=== PATIENT | female | born 1985 | race Caucasian/White ===

== ENCOUNTER 2023-05-27 15:16 | Outpatient (REF) | payer MEDICAID, SELFPAY ==
--- OUTSIDE RECORDS SUMMARY | 2023-05-27 15:19 | XMS_ITS | Patient Health Record ---
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 Name Role Phone Rox Kern Primary Care Provider OG ARORA Unavailable Unavail able Zuleika Pawan Unavailable Marleni Moscoso Unavailable [phone] ALLERGIES Allergen (clinical drug ingredient) Drug/Non Drug Allergy documented on EMR Reaction Allergy Type Onset Date Status escitalopram Lexapro Effective treatment, intolerable sexual side effects Drug Allergy Active Sudafed 12 Hour anxious Drug Allergy A ctive prednisone Prednisone Unknown Drug Allergy Activ e sertraline Sertraline Unknown Drug Allergy Activ e RESULTS Component Value Reference Range Notes CBC WITH DIFF Reviewed date:06/23/2022 04:56:03 PM Interpretation: Performing Lab:NL1, [facility], [address] [place] [address], [phone] Sourav Goel M.D. Notes/Report: Received Date: WHITE BLOOD CELL COUNT 5.8 3.8-10.8 Thousand/ uL RED BLOOD CELL COUNT 4.16 3.80-5.10 Million/uL HEMOGLOBIN 13.1 11.7-15.5 g/dL HEMATOCRIT 37.1 35.0-45.0 % MCV 89.2 80.0-100.0 fL MCH 31.5 27.0-33.0 pg MCHC 35.3 32.0-36.0 g/dL RDW 12.2 11.0-15.0 % PLATELET COUNT 296 140-400 Thousand/uL MPV 9.8 7.5-12.5 fL ABSOLUTE NEUTROPHILS 2558 [phone] cells/uL ABSOLUTE LYMPHOCYTES 0959 101-0684 cells/uL ABSOLUTE MONOCYTES 249 200-950 cells/uL ABSOLUTE EOSINOPHILS 1067 15-500 cells/uL ABSOLUTE BASOPHILS 58 0-200 cells/uL NEUTROPHILS 44.1 LYMPHOCYTES 32.2 MONOCYTES 4.3 EOSINOPHILS 18.4 BASOPHILS 1.0 IRON TOTAL IRON BINDING [place] AND FERRITIN PANEL Reviewed date:06/23/2022 04:56:03 PM Interpretation: Performing Lab:NL1, [facility], [address] [place] [address], [phone] Sourav Goel M.D. Notes/Report: Received Date: IRON, TOTAL 74 40-190 mcg/dL IRON BINDING CAPACITY 312 250-450 mcg/dL (bean c) % SATURATION 24 16-45 % (calc) FERRITIN 16 16-154 ng/mL REASON FOR REFERRAL Reason FAXED TO [facility] 2.17.2 023 [place] Please evaluate and treat Please contact our office within [address] [facility] of scheduled appointment Diagnosis 1 Other eosinophilia ( D72.19) Diagnosis 2 Chronic sinusitis (J 32.9) Diagnosis 3 Allergic rhinitis wi th postnasal drip (J45.909) Referral Organization [facility] [place] Referring Provider First Name Rox Referring Provider Last Name Erlin Referring Provider Speciality Nurse Silva ruano Referred Provider Yovani Michael Referred Provider Specialty Otolaryngolo gy General Notes Renetta Hassan 06/20 11:02:36 AM >FAXED TO [facility]. Referral Priority Routine Reason FAXED TO [facility] 2.17.20 23 [place] Please evaluate and treat Please contact our office within [address] [facility] of scheduled appointment Diagnosis 1 Multiple environment al allergies (Z91.09) Diagnosis 2 Allergic rhinitis wi th postnasal drip (J45.909) Diagnosis 3 Chronic sinusitis (J 32.9) Diagnosis 4 Other eosinophilia ( D72.19) Referral Organization [facility] Gonzalo Damon Referring Provider First Name Rox Referring Provider Last Name Erlin Referring Provider Speciality Nurse Silva ruano Referred Provider Landon Tyler Referred Provider Specialty Allergy/Immu nology General Notes Renetta Hassan 06/20 11:03:11 AM >FAXED TO [facility]. Referral Priority Routine MEDICATIONS Medication SIG (Take, Route, Frequency, Duration) Notes Start Date End Date Status Albuterol Sulfate HFA 108 (90 Base) MCG/ACT 1 puff as needed Inhalation every 4 hrs 10/04/2021 Active Advair Diskus 100-50 MCG/ACT 1 puff Inhalation Twice a day as needed with illness for 30 days 12/03/2022 Active buPROPion HCl ER (SR) 200 MG 1 tablet in the morning Orally Once a day for 30 days stopping wellbutrin XL 05/07/2023 Active Wellbutrin XL 150 MG 1 tablet in the morning Orally Once a day for 30 days 03/23/2023 Active Montelukast Sodium 10 MG 1 tablet Orally Once a day for 30 days 06/19/2022 Active Fluticasone Propionate 50 MCG/ACT 1 spray in each nostril Nasally Once a day Active IMMUNIZATIONS Vaccine Route Administration Date Status Comme nts COVID-19 Pfizer Unknown 08/21/2020 Administered COVID-19 Pfizer Unknown 09/11/2020 Administered COVID-19 Pfizer Unknown 03/21/[address] [facility] [id number] Unknown [address] [facility] [id number] Unknown [address] [facility] [id number] Unknown [address] [facility] [id number] Unknown 12/21/[address] [facility] [id number] Unknown 12/18/1987 [address] B Peds [facility] [id number] Unknown 12/26/1998 Administ[address] Hepatitis B Peds [facility] [id number] Unknown 01/29/1999 Administered Hepatitis B Peds [facility] [id number] Unknown 05/14/[address] [facility] [id number] Unknown 12/13/1986 Administered INFLUENZA 18 YRS TO 64 YRS OLD-STATE SUPPLIED IM Intramuscular 02/14/[address] [facility] Purchased Vaccine 31957 Unknown 06/23/[address] [facility] Purchased Vaccine [id number] Unknown 02/27/[address] [facility] Purchased Vaccine 48650 Unknown 04/18/[address] [facility] Purchased Vaccine [id number] Unknown 02/09/[address] [facility] Purchased Vaccine [id number] Unknown 07/03/[address] [facility] Purchased Vaccine [id number] Unknown 06/12/[address] [facility] Purchased Vaccine 60479 Unknown 04/21/[address] [facility] Purchased Vaccine [id number] Unknown 04/07/[address] [facility] Purchased Vaccine [id number] Unknown 03/13/2020 Administered MMR [facility] [id number] Unknown 06/28/1984 Administered MMR [facility] [id number] Unknown 09/04/1994 Administered OPV Unknown 1983 Administered OPV Unknown 1983 Administered OPV Unknown 1983 Administered OPV Unknown 12/21/1984 Administered OPV Unknown 12/18/1987 Administered Td Unknown 10/30/1992 Administered Td Unknown 12/26/1998 Administered Td Unknown 06/23/2005 Administered TDAP Unknown 11/29/2012 Administered TDAP Unknown 11/02/2018 Administered Varicella [facility] 77794 Unknown 10/04/1984 Administered SOCIAL HISTORY Tobacco Use: Social History Observation Description Date Details (start date - stop date) Never Smoker NA - NA Sex Assigned At : Social History Observation Description Sex Assigned At Female SMOKING STATUS: Question Answer Notes Are you a: Nonsmoker PRAPARE Question Answer Notes Date Completed/Updated: 08/26/2021 What is your current housing situation? I have h ousing Are you worried about losing your housing? No What is the highest level of school that you have finished? 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 Check all that apply I do not have problems meeting my needs Has lack of transportation k ept you from medical appointments, meetings, work or from getting things needed for daily living? No How often do you see or talk to people that you care about and feel close to? (For example: talking to friends on the phone, visiting friends or family, going to hindu or club meetings) More than 5 times a week How stressed are you? Stress is when someone feels tense, nervous, anxious, or can't sleep at night because their mind is troubled A little bit In the past year have you sp ent more than 2 nights in a row in a group home, jail, [facility] center, or juvenile correctional facility? No Are you a refugee? No What country are you from? [place] Do you feel physically and e motionally safe where you currently live? Yes In the past year, have you b een afraid of your partner or ex-partner? No PRAPARE Score: 2 PROBLEMS Problem Type ICD Code Onset Dates Problem Status W/U Status Risk SNOMED Code Notes Problem Mild persistent asthma, uncomplicated (J45.30) Active confirmed 173910552 Problem Allergic rhinitis with postnasal drip (J45.909) Active confirmed Asthma withou t status asthmaticus (62140526) Problem EFRAIN (generalized anxiety disorder) (F41.1) Active confirmed 46610865 Problem Chronic sinusitis (J32.9) Active confirmed Chronic sinusitis (98238797) Problem ADHD (attention deficit hyperactivity disorder), combined type (F90.2) Active confirmed 23215289 Problem Menorrhagia with regular cycle (N92.0) Active confirmed 425583676 Problem Mild episode of recurrent major depressive disorder (F33.0) Active confirmed 916968286 Problem Multiple environmental allergies (Z91.09) Active confirmed Environmental allergy (finding) (713404733) Problem 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) Active confirmed Eosinophil coun t above reference range (finding) (112577970) VITAL SIGNS Heart Rate 81 BPM 12/03/2022 Temperature 97.8 degrees Fahrenheit 12/03/2022 Oximetry 98 % 12/03/2022 Blood pressure diastolic 70 mmHg 12/03/2022 Height 63.31 in 12/03/2022 Blood pressure systolic 120 mmHg 12/03/2022 Weight 137 lbs 12/03/2022 BMI 24.03 kg/m2 12/03/2022 Encounters Encounter Location Date Provider Diagnosis [address] [id number] 06/26/2022 Rox Kern Mild persistent asthma, uncomplicated J45.[address] [id number] 08/20/2022 Marleni Moscoso [address] [id number] 09/01/2022 Rox Kern [address] [id number] 09/11/2022 Rox Kern [address] [id number] 10/14/2022 Marleni Moscoso [address] [id number] 11/25/2022 Marleni Moscoso [address], [place] [id number] 12/03/2022 Rox Kern [address] [id number] 04/09/2023 Marleni Moscoso [address] [id number] 05/14/2023 Yepezant Moscoso [address], [place] [id number] 06/19/2022 Rox Kern Encounter to establish care with new doctor Z76.89 ; Fatigue R53.83 ; Chronic sinusitis J32.9 ; Reactive airway disease, mild persistent, uncomplicated J45.30 and Menorrhagia with regular cycle N92.[address] [id number] 07/16/2022 Marleni Moscoso Mild episode of recurrent major depressive disorder F33.0 ; EFRAIN (generalized anxiety disorder) F41.1 and ADHD (attention deficit hyperactivity disorder), combined type F90.[address] [id number] 08/19/2022 Yepez Brodrichard Mild episode of recurrent major depressive disorder F33.0 ; EFRAIN (generalized anxiety disorder) F41.1 and ADHD (attention deficit hyperactivity disorder), combined type F90.[address] [id number] 10/17/2022 Yepezant Moscoso Mild episode of recurrent major depressive disorder F33.0 ; EFRAIN (generalized anxiety disorder) F41.1 and ADHD (attention deficit hyperactivity disorder), combined type F90.[address] [id number] 10/30/2022 Yepez Brodrichard Mild episode of recurrent major depressive disorder F33.0 ; EFRAIN (generalized anxiety disorder) F41.1 and ADHD (attention deficit hyperactivity disorder), combined type F90.[address] [id number] 11/26/2022 Yepezant Moscoso Mild episode of recurrent major depressive disorder F33.0 ; EFRAIN (generalized anxiety disorder) F41.1 and ADHD (attention deficit hyperactivity disorder), combined type F90.[address], [place] [id number] 12/03/2022 Rox Kern Annual physical exam Z00.00 and Dietary counseling Z71.[address] [id number] 12/18/2022 Yepez Brodrichard Mild episode of recurrent major depressive disorder F33.0 ; EFRAIN (generalized anxiety disorder) F41.1 and ADHD (attention deficit hyperactivity disorder), combined type F90.[address] [id number] 01/15/2023 Yepez Brodhiramnssienna Mild episode of recurrent major depressive disorder F33.0 ; EFRAIN (generalized anxiety disorder) F41.1 and ADHD (attention deficit hyperactivity disorder), combined type F90.[address] [id number] 02/03/2023 Yepez Brodhiramnssienna Mild episode of recurrent major depressive disorder F33.0 ; EFRAIN (generalized anxiety disorder) F41.1 and ADHD (attention deficit hyperactivity disorder), combined type F90.[address] [id number] 03/04/2023 Yepez Brodhiramnssienna Mild episode of recurrent major depressive disorder F33.0 ; EFRAIN (generalized anxiety disorder) F41.1 and ADHD (attention deficit hyperactivity disorder), combined type F90.[address] [id number] 04/01/2023 Yepez Brodzinssienna Mild episode of recurrent major depressive disorder F33.0 ; EFRAIN (generalized anxiety disorder) F41.1 and ADHD (attention deficit hyperactivity disorder), combined type F90.2 [facility] [address] [place], [place] [id number] 06/03/2022 Rox Kern [address], [place] [id number] 06/19/2022 Rox Kern [address], [place] [id number] 06/19/2022 Rox CULVER [address] [id number] 07/21/2022 Marleni Moscoso Mild episode of recurrent major depressive disorder F33.[address] [id number] 10/02/2022 Rox Kern [address] [id number] 01/13/2023 Marleni Moscoso Mild episode of recurrent major depressive disorder F33.[address] [id number] 02/24/2023 Marleni Moscoso Mild episode of recurrent major depressive disorder F33.[address] [id number] 03/23/2023 Marleni Moscoso Mild episode of recurrent major depressive disorder F33.[address] [id number] 04/01/2023 Pawan To [address] [id number] 05/07/2023 Marleni Moscoso ASSESSMENTS Encounter Date Diagnosis Assessment Notes Treatment Notes Treatment Clinical Notes 06/19/2022 PRAPARE NEGATIVE (ICD9-CM - PRAN) 06/19/2022 Fatigue (ICD-10 - R53.83) 06/19/2022 Encounter to establish care with new doctor (ICD-10 - Z76.89) 06/26/2022 Mild persistent asthma, uncomplicated (ICD-10 - J45.30) 07/16/2022 EFRAIN (generalized anxiety disorder) (ICD-10 - F41.1) 07/16/2022 Mild episode of recurrent major depressive disorder (ICD-10 - F33.0) 07/21/2022 Mild episode of recurrent major depressive disorder (ICD-10 - F33.0) 08/19/2022 Mild episode of recurrent major depressive disorder (ICD-10 - F33.0) 10/17/2022 Mild episode of recurrent major depressive disorder (ICD-10 - F33.0) 10/30/2022 Mild episode of recurrent major depressive disorder (ICD-10 - F33.0) 11/26/2022 Mild episode of recurrent major depressive disorder (ICD-10 - F33.0) 12/03/2022 Annual physical exam (ICD-10 - Z00.00) 12/03/2022 Dietary counseling (ICD-10 - Z71.3) 12/18/2022 Mild episode of recurrent major depressive disorder (ICD-10 - F33.0) 01/13/2023 Mild episode of recurrent major depressive disorder (ICD-10 - F33.0) 02/03/2023 Mild episode of recurrent major depressive disorder (ICD-10 - F33.0) 02/24/2023 Mild episode of recurrent major depressive disorder (ICD-10 - F33.0) 03/04/2023 Mild episode of recurrent major depressive disorder (ICD-10 - F33.0) 03/23/2023 Mild episode of recurrent major depressive disorder (ICD-10 - F33.0) 01/15/2023 Mild episode of recurrent major depressive disorder (ICD-10 - F33.0) 04/01/2023 Mild episode of recurrent major depressive disorder (ICD-10 - F33.0) 02/03/2023 EFRAIN (generalized anxiety disorder) (ICD-10 - F41.1) 04/01/2023 EFRAIN (generalized anxiety disorder) (ICD-10 - F41.1) 03/04/2023 EFRAIN (generalized anxiety disorder) (ICD-10 - F41.1) 01/15/2023 EFRAIN (generalized anxiety disorder) (ICD-10 - F41.1) 12/18/2022 EFRAIN (generalized anxiety disorder) (ICD-10 - F41.1) 11/26/2022 EFRAIN (generalized anxiety disorder) (ICD-10 - F41.1) 10/30/2022 EFRAIN (generalized anxiety disorder) (ICD-10 - F41.1) 10/17/2022 EFRAIN (generalized anxiety disorder) (ICD-10 - F41.1) 08/19/2022 EFRAIN (generalized anxiety disorder) (ICD-10 - F41.1) 07/16/2022 ADHD (attention deficit hyperactivity disorder), combined type (ICD-10 - F90.2) 06/19/2022 Chronic sinusitis (ICD-10 - J32.9) 08/19/2022 ADHD (attention deficit hyperactivity disorder), combined type (ICD-10 - F90.2) 10/17/2022 ADHD (attention deficit hyperactivity disorder), combined type (ICD-10 - F90.2) 10/30/2022 ADHD (attention deficit hyperactivity disorder), combined type (ICD-10 - F90.2) 11/26/2022 ADHD (attention deficit hyperactivity disorder), combined type (ICD-10 - F90.2) 12/18/2022 ADHD (attention deficit hyperactivity disorder), combined type (ICD-10 - F90.2) 01/15/2023 ADHD (attention deficit hyperactivity disorder), combined type (ICD-10 - F90.2) 03/04/2023 ADHD (attention deficit hyperactivity disorder), combined type (ICD-10 - F90.2) 04/01/2023 ADHD (attention deficit hyperactivity disorder), combined type (ICD-10 - F90.2) 02/03/2023 ADHD (attention deficit hyperactivity disorder), combined type (ICD-10 - F90.2) 06/19/2022 Reactive airway disease, mild persistent, uncomplicated (ICD-10 - J45.30) 06/19/2022 Menorrhagia with regular cycle (ICD-10 - N92.0) 06/19/2022 Other Visit performed and documented by DNP student, Lolis Dalal. I, Ben Arora APRN have personally reviewed and agree with the documentation as above. The assessment and plan were formulated with my direct involvement. 07/16/2022 Other Documentation assistance provided by artur An for Marleni Moscoso [facility] ASSISTANT STORE MANAGER-C INSULATION POWER UNIT TENDER on 07/16/2022. I have read the medical record and scribe entries. I approve the care and treatment provided to this patient as recorded by the scribe. Increase Lamotrigine to 200 mg, monitor for rash and stop if rash occursContinue exercising on regular basisContinue engaging in activities she enjoys like yoga and marathonWould benefit from couples counseling 08/19/2022 Other Documentation assistance provided by artur An [facility] ASSISTANT STORE MANAGER-C INSULATION POWER UNIT TENDER on 08/19/2022. I have read the medical record and scribe entries. I approve the care and treatment provided to this patient as recorded by the scribe Continue Lamotrigine 200 mg, monitor for rash and stop if rash occursContinue exercising on regular basisContinue engaging in activities she enjoys like yoga and marathonContinue engaging with her friends congratulated her on maintaining her sobriety 10/17/2022 Other Documentation assistance provided by artur An [facility] ASSISTANT STORE MANAGER-C INSULATION POWER UNIT TENDER on 10/17/2022. I have read the medical record and scribe entries. I approve the care and treatment provided to this patient as recorded by the scribe Start Vyvanse 20 mg, one capsule in the morning with foodMonitor for suppressed appetite, poor sleep an increase in headaches and irritabiltyContinue Lamotrigine 150 mg, monitor for rash and stop if rash occursContinue engaging in activities she enjoys like golfing, yoga and marathonContinue engaging with her family and friends 10/30/2022 Other Documentation assistance provided by artur An [facility] ASSISTANT STORE MANAGER-C INSULATION POWER UNIT TENDER on 10/30/2022. I have read the medical record and scribe entries. I approve the care and treatment provided to this patient as recorded by the scribe Increase Vyvanse to 30 mg, one capsule in the morning with foodMonitor for suppressed appetite, poor sleep, increase in headaches and increased irritability Will monitor BPContinue Lamotrigine 200 mg, monitor for rash and stop if rash occursContinue engaging in activities she enjoys like golfing, yoga and marathonContinue engaging with her family and friends 11/26/2022 Other Documentation assistance provided by artur An [facility] ASSISTANT STORE MANAGER-C INSULATION POWER UNIT TENDER on 11/26/2022. I have read the medical record and scribe entries. I approve the care and treatment provided to this patient as recorded by the scribe Increase Vyvanse to 40 mg, in the morningMonitor for suppressed appetite and headachesWill monitor BP Continue Lamotrigine 200 mg, monitor for rash and stop if rash occursWill consider decreasing if ice bath therapy works wellContinue daily exercise 12/18/2022 Other Documentation assistance provided by artur Annski [employer] ASSISTANT STORE MANAGER-C INSULATION POWER UNIT TENDER on 12/18/2022. I have read the medical record and scribe entries. I approve the care and treatment provided to this patient as recorded by the scribe Will mail control drug contract Continue Vyvanse 40 mg, in the morning Monitor for suppressed appetite and headaches Decrease Lamotrigine to 100 mg, monitor for rash and stop if rash occurs Will consider d/c'ing if ice bath therapy works well Continue daily exercise Continue engaging with her family and dog 01/15/2023 Other Documentation assistance provided by efra Anibing for Yepez Blanka [employer] ASSISTANT STORE MANAGER-C INSULATION POWER UNIT TENDER on 01/15/2023. I have read the medical record and scribe entries. I approve the care and treatment provided to this patient as recorded by the scribe Continue Vyvanse 40 mg, in the morningMonitor for suppressed appetite and headachesDecrease Lamotrigine to 100 mg, monitor for rash and stop if rash occursEnjoy trip with her familyEncouraged using hot tub to relieve muscle tension 02/03/2023 Other Documentation assistance provided by efra Anibing for Marleni Moscoso [facility] ASSISTANT STORE MANAGER-C INSULATION POWER UNIT TENDER on 02/03/2023. I have read the medical record and scribe entries. I approve the care and treatment provided to this patient as recorded by the scribe. Continue Vyvanse 40 mg, in the morningWill consider increasing in the futureMonitor for suppressed appetite and headachesContinue Lamotrigine to 100 mg, monitor for rash and stop if rash occursEncourage engaging in regular walks Continue in Yoga, discussed the importance of taking time for herself 03/04/2023 Other Documentation assistance provided by efra Anibing for Yepez Blanka [facility] ASSISTANT STORE MANAGER-C INSULATION POWER UNIT TENDER on 03/04/2023. I have read the medical record and scribe entries. I approve the care and treatment provided to this patient as recorded by the scribe Stop Vyvanse Continue Wellbutrin SR 100 mg Will consider increasing dose to Wellbutrin XL 150 in the future Monitor for increase in irritability or headaches Continue exercising daily Discussed importance of taking time for herself 04/01/2023 Other Documentation assistance provided by artur An for Yepez Blanka [employer] ASSISTANT STORE MANAGER-C INSULATION POWER UNIT TENDER on 04/01/2023. I have read the medical record and scribe entries. I approve the care and treatment provided to this patient as recorded by the scribe Continue Wellbutrin SR 150 mg once daily continue daily exercise Continue engaging in activities she enjoys PLAN OF TREATMENT Next Appt Details Provider Name:Marleni Reddy Sadi hedrick, 06/16/2023 12:30:00 PM, [address] [place], [place], [phone], Insurance Providers Payer Name Payer Address Payer Phone Subscriber Number Group Number Insured Name Patient Relationship to Insured Coverage Start Date Coverage End Date [place] [address] [place] [address] [phone] [id number] Chiquis Abdalla Self - patient is the insured MEDICAL (GENERAL) HISTORY Medical History History ICD Code 02/21/20 Last PE Seasonal Allergies Anxiety Depression Acne Vulgaris Migraines w/aura - hormonal contraceptio n related 2012 Abnormal Pap ASCUS 2000 Abnormal Pap, Cryotherapy Former smoker Kidney Stones - in college Midtrimester Miscarriage, 18wks Perioral Dermatitis Left Knee Pain Surgical History Surgery Date(Month/Year) dilatation and curettage dental extraction cryotherapy, LORETO 1-2 2000 Hospitalization History Reason Date(Month/Year) miscarriage 2 vaginal deliveries
[2023-05-27 20:55] LABS: Source Nasal/Nares
[2023-05-27 22:35] LABS: COVID-19 PCR Negative (Negative)
== END 2023-05-27 15:17 | disposition home or self-care (01) ==
LOC: NCHCN 15:16
PROVIDERS: PCP Nurse Practitioner Family; Visit Provider Physician Assistant Medical
DX: J02.9 Acute pharyngitis, unspecified (principal); R05.8 Other specified cough; Z20.822 Contact with and (suspected) exposure to COVID-19
CPT/HCPCS: 87635; 87070

== ENCOUNTER 2024-05-24 15:51 | Outpatient (REF) | payer MEDICAID, SELFPAY ==
[2024-05-24 15:46] LABS: BUN 16 mg/dL (7-18); CREATININE 0.8 mg/dL (0.55-1.02); Calcium 9.3 mg/dL (8.5-10.1); Calculated LDL 104 mg/dL (<100); Chloride 107 mmol/L (98-107); Cholesterol 212 mg/dL (<200); Estimated GFR 94.87 (mL/min/1.73m2); Glucose 74 mg/dL (74-106); HDL Cholesterol 100 mg/dL (40-60); Potassium 4.1 mmol/L (3.5-5.1); Sodium 142 mmol/L (136-145); TSH (W/Ref FT4) 2.19 uIU/mL (0.36-3.74); Triglyceride 41 mg/dL (<150)
== END 2024-05-24 15:52 | disposition home or self-care (01) ==
LOC: NCHCN 15:51
PROVIDERS: PCP Nurse Practitioner Family; Visit Provider Family Medicine
DX: Z13.220 Encounter for screening for lipoid disorders (principal); Z13.1 Encounter for screening for diabetes mellitus; R53.83 Other fatigue
CPT/HCPCS: 80048; 80061; 84443